=== PATIENT | male | born 2000 | race Caucasian/White ===

== ENCOUNTER 2019-05-05 07:33 | Emergency (ER) | payer OTHER ==
[2019-05-05] MEDS ORDERED: Fluorescein Sodium TOPICAL* 1 MG TEST STRIP OPHTHALMIC ONE (08:07)
--- NOTE | 2019-05-05 08:24 | UC ---
Eye Complaint HPI - HPI Summary HPI Summary: 18 yo male with about a day of right eye pain hurts when he blinks no know FB no visual complaints - History of Current Complaint Chief Complaint: UCEye Stated Complaint: EYE ISSUE Time Seen by Provider: 05/05/19 07:48 Hx Obtained From: Patient Onset/Duration: Sudden Onset Timing: Constant Severity Initially: Mild Severity Currently: Mild Pain Intensity: 3 Pain Scale Used: 0-10 Numeric Location of Injury: Eye Lid (upper) Character: Sharp Aggravating Factor(s): Blinking Alleviating Factor(s): Nothing Associated Signs And Symptoms: Negative: Photophobia, Drainage (Clear), Vision Impairment Bilateral, Vision Impairment Right, Vision Impairment Left, Fever, Swelling Eyes: 1 - area of flourescein uptake - Allergies/Home Medications Allergies/Adverse Reactions: Allergies Allergy/AdvReac Type Severity Reaction Status Date / Time environmental Allergy Congestion Uncoded 05/05/19 07:56 Home Medications: Home Medications Selenium Sulfide 1 applic TOPICAL DAILY PRN 05/05/19 [History Confirmed 05/05/19 ] PMH/Surg Hx/FS Hx/Imm Hx Previously Healthy: Yes - Surgical History Surgical History: Yes Surgery Procedure, Year, and Place: wisdom teeth - Social History Alcohol Use: Occasionally Alcohol Amount: 1 every 3-4 weeks Substance Use Type: None Smoking Status (MU): Never Smoked Tobacco Review of Systems All Other Systems Reviewed And Are Negative: Yes Constitutional: Positive: Negative Eyes: Positive: Other - pain right upper eyelid with blinking ENT: Positive: Negative Respiratory: Positive: Negative Cardiovascular: Positive: Negative Gastrointestinal: Positive: Negative Genitourinary: Positive: Negative Motor: Positive: Negative Neurovascular: Positive: Negative Musculoskeletal: Positive: Negative Neurological: Positive: Negative Psychological: Positive: Negative Physical Exam Triage Information Reviewed: Yes Appearance: Well-Appearing, No Pain Distress, Well-Nourished Vital Signs: Initial Vital Signs Temp 98.3 F 05/05/19 07:46 Pulse 85 05/05/19 07:46 Resp 18 05/05/19 07:46 BP 119/81 05/05/19 07:46 Pulse Ox 99 05/05/19 07:46 Vital Signs Reviewed: Yes Eyes: Positive: Conjunctiva Inflamed - R slightly, Other: - upper right lid everted/red swollen/imflamed medially ENT: Positive: Hearing grossly normal. Negative: Nasal congestion, Nasal drainage, Muffled voice, Hoarse voice Dental Exam: Normal Neck: Positive: Supple Respiratory: Positive: Lungs clear, Normal breath sounds, No respiratory distress Cardiovascular: Positive: RRR, No Murmur Bowel Sounds: Positive: Present Musculoskeletal: Positive: ROM Intact, No Edema Neurological: Positive: Alert Psychological Exam: Normal Skin Exam: Normal Eye Complaint Course/Dx - Differential Dx/Diagnosis Provider Diagnosis: Pain of right eyelid Discharge ED - Sign-Out/Discharge Documenting (check all that apply): Patient Departure All imaging exams completed and their final reports reviewed: No Studies - Discharge Plan Condition: Stable Disposition: HOME Referrals: Yaron Montez MD [Medical Doctor] - Additional Instructions: I am unsure what is cause the swelling and pain of your right upper eyelid You have an appt at Dr. Chao at 12:45 today Try OTC ZADITOR eye drops - Billing Disposition and Condition Condition: STABLE Disposition: Home
== END 2019-05-05 09:14 | disposition home or self-care (01) ==
LOC: UCEAST 07:33
DX: H57.11 Ocular pain, right eye (principal); H57.89 Other specified disorders of eye and adnexa; Z91.09 Other allergy status, other than to drugs and biological substances
CPT/HCPCS: 99201; A9270-GY; G0463